=== PATIENT | female | born 1945 | race Caucasian/White ===

== ENCOUNTER 2016-10-24 17:43 | Emergency (ER) | payer OTHER, MEDICARE ==
[~2016-10-24] VITALS: Ht 152.4 cm; Wt 65.8 kg
--- NOTE | ~2016-10-24 | CR93 ---
[facility] A Service of [facility] RADIOLOGY TEXT RESULTS PATIENT: JENNA MORGAN LOCATION: CFTX : 49 UNIT #: [id number] AGE: [address]: Farheen Abraham SEX: F ORDER DR: [id number] [facility] [address] [place], [place] [address] [id number] E MR#: [id number] Acc #: [id number] NAME: JENNA MORGAN : 1945 SEX: F STUDY DATE/TIME: 10/24/2016 18:13 UNIT: [facility] ROOM: STUDY DESCRIPTION: CR Elbow Min 3 Views Lt Attending Physician: Farheen Abraham Pa-C Ordering Physician: Ed Doctor [id number] [facility] Primary Care Physician: John Alvarado M.D. MEDICAL IMAGING REPORT This report is preliminary unless electronic signature is present EXAM 2 views of the left elbow, 10/24/2017 HISTORY 71-year-old female with cat bite and puncture wound today. Pain in the left arm, greatest at the elbow, pain when resting on surfaces. FINDINGS Two 3.0 mm lucent foci are demonstrated within the soft tissues at the ulnar (medial) margin of the elbow which could represent puncture wound defects. No retained radiopaque foreign body. No fracture or joint dislocation or definite joint effusion. Chronic well-corticated calcifications are seen at the margin of the lateral humeral condyle. IMPRESSION Two small air lucencies are seen within the left elbow soft tissues medially and may represent sites of puncture wound. However, no retained radiopaque foreign body is seen. No acute osseous abnormality. Dictated by... Naomy Evangelista M.D. THIS IS AN ELECTRONICALLY VERIFIED REPORT Naomy Evangelista M.D. at 10/25/2016 2:21 PM Rojelio TD: 10/25/2016 08:47 JOB #: [id number] MEDICAL IMAGING REPORT Page 1 of 1 COPY
--- NOTE | ~2016-10-24 | CR132 ---
[facility] A Service of [facility] RADIOLOGY TEXT RESULTS PATIENT: JENNA MORGAN LOCATION: CFTX : 49 UNIT #: [id number] AGE: [address]: Farheen Abraham SEX: F ORDER DR: [id number] [facility] [address] [place], [place] [address] [id number] E MR#: [id number] Acc #: [id number] NAME: JENNA MORGAN : 1945 SEX: F STUDY DATE/TIME: 10/24/2016 18:12 UNIT: [facility] ROOM: STUDY DESCRIPTION: CR Forearm 2 View Lt Attending Physician: Farheen Abraham Pa-C Ordering Physician: Ed Doctor [id number] [facility] Primary Care Physician: John Alvarado M.D. MEDICAL IMAGING REPORT This report is preliminary unless electronic signature is present EXAM 2 views left forearm, 10/24/2016 HISTORY Left arm pain greatest in the elbow. Pain when resting arm on surfaces rather than in motion. History to cat bite and puncture wound today. FINDINGS AP and lateral views of the forearm show no evidence of fracture or destructive bone lesion. No periosteal elevation is seen. No radiodense foreign bodies are noted. Adjacent soft tissue structures are normal. IMPRESSION Normal left forearm. Dictated by... Naomy Evangelista M.D. THIS IS AN ELECTRONICALLY VERIFIED REPORT Naomy Evangelista M.D. at 10/25/2016 2:21 PM Rojelio TD: 10/25/2016 08:45 JOB #: [id number] MEDICAL IMAGING REPORT Page 1 of 1 COPY
[~2016-10-24 17:43] MED LIST: ASPIRIN EC81 M1 PO; COREG3.125 M1; EFFIENT10 MG PO; LEVOTHYROXINE50 MC1 PO; LIPITOR80 MG PO; NITROGLYCERIN0.3 MG SL; OMEPRAZOLE20 M2 PO; TYLENOL #3 PO; VITAMIN B12-FO1 EACH; VOLTAREN50 MG PO
== END 2016-10-24 19:09 | disposition home or self-care (01) ==
LOC: CED 17:43 → CFTX 17:43
DX: S51.052A Open bite, left elbow, initial encounter (principal); S51.852A Open bite of left forearm, initial encounter; Z23 Encounter for immunization; K21.9 Gastro-esophageal reflux disease without esophagitis; D64.9 Anemia, unspecified; Z79.82 Long term (current) use of aspirin; Z79.899 Other long term (current) drug therapy; W55.01XA Bitten by cat, initial encounter; Y92.009 Unspecified place in unspecified non-institutional (private) residence as the place of occurrence of the external cause
CPT/HCPCS: 73080; 73090; 90471; 90715; 99283